=== PATIENT | male | born 1975 | race Caucasian/White ===

== ENCOUNTER 2019-11-12 16:54 | Emergency (ER) | payer OTHER ==
[~2019-11-12] VITALS: Ht 182.9 cm; Wt 92.1 kg
[2019-11-12 17:00] VITALS: BP 177/100
[2019-11-12] MEDS ORDERED: TRAMADOL 50 MG50 MG PO (18:06)
== END 2019-11-12 18:16 | disposition home or self-care (01) ==
LOC: ER 16:54
DX: S41.132A Puncture wound without foreign body of left upper arm, initial encounter (principal); S01.81XA Laceration without foreign body of other part of head, initial encounter; V49.40XA Driver injured in collision with unspecified motor vehicles in traffic accident, initial encounter; Y93.89 Activity, other specified; Y92.89 Other specified places as the place of occurrence of the external cause; Y99.8 Other external cause status